=== PATIENT | male | born 1955 | race African-American/Black ===

== ENCOUNTER 2019-02-26 07:24 | Emergency (ER) | payer OTHER ==
[~2019-02-26] VITALS: Ht 167.6 cm; Wt 107.0 kg
[2019-02-26 08:15] VITALS: BP 143/86
== END 2019-02-26 08:17 | disposition home or self-care (01) ==
LOC: ER 07:24
DX: L03.113 Cellulitis of right upper limb (principal); I10 Essential (primary) hypertension; Z96.649 Presence of unspecified artificial hip joint
CPT/HCPCS: 99283